=== PATIENT | female | born 1985 | race Caucasian/White ===

== ENCOUNTER 2017-08-21 19:55 | Emergency (ER) | payer BC, OTHER ==
[2017-08-21 20:01] VITALS: BP 107/73; BMI 26.6
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
[2017-08-21 21:14] LABS: BASOPHILS # (AUTO) 0.1 X10^3/uL (0.0-0.1); BASOPHILS % (AUTO) 0.8 % (0.2-1.0); EOSINOPHILS # (AUTO) 0.1 x10^3/uL (0.0-0.2); EOSINOPHILS % (AUTO) 1.4 % (0.9-2.9); HEMATOCRIT 39.2 % (36.0-47.0); HEMOGLOBIN 13.5 g/dL (12.0-16.0); LYMPHOCYTES # (AUTO) 2.4 X10^3/uL (1.3-2.9); LYMPHOCYTES % (AUTO) 33.8 % (21.0-51.0); MEAN CORPUSCULAR HEMOGLOBIN 30.7 pg (27.0-34.0); MEAN CORPUSCULAR HGB CONC 34.5 g/dL (33.0-35.0); MEAN PLATELET VOLUME 8.6 fL (7.4-11.0); MONOCYTES # (AUTO) 0.6 x10^3/uL (0.3-0.8); MONOCYTES % (AUTO) 8.8 % (0.0-13.0); NEUTROPHILS # (AUTO) 3.9 x10^3/uL (2.2-4.8); NEUTROPHILS % (AUTO) 55.2 % (42.0-75.0); PLATELET COUNT 263 X10^3/uL (150.0-450.0); RED BLOOD COUNT 4.41 X10^6/uL (3.5-5.4); RED CELL DISTRIBUTION WIDTH 12.9 % (11.6-16.5)
[2017-08-21 21:15] LABS: BILIRUBIN,URINE NEGATIVE (NEGATIVE); BLOOD/HEMOGLOBIN,URINE NEGATIVE (NEGATIVE); GLUCOSE, URINE NEGATIVE (NEGATIVE); KETONES,URINE NEGATIVE (NEGATIVE); LEUKOCYTE ESTERASE ,URINE 1+ (NEGATIVE); NITRITES,URINE NEGATIVE (NEGATIVE); PROTEIN,URINE 1+ (NEGATIVE); UROBILINOGEN,URINE 2+ (NORMAL)
[2017-08-21 21:21] LABS: APPEARANCE,URINE CLEAR (CLEAR); BACTERIA,URINE TRACE /HPF (NEGATIVE); COLOR,URINE YELLOW (YELLOW); MUCUS,URINE MANY /HPF (NEGATIVE); RBC,URINE NONE SEEN /HPF (NEGATIVE); SQUAMOUS EPITHELIAL CELL,UR FEW /HPF (NEGATIVE)
[2017-08-21 21:24] LABS: BLOOD UREA NITROGEN 11 mg/dL (7-18); CALCIUM 8.9 mg/dL (8.5-10.1); CARBON DIOXIDE 31.3 mmol/L (21-32); CHLORIDE 106 mmol/L (98-107); CREATININE 0.96 mg/dL (0.55-1.02); SODIUM 144 mmol/L (136-145); eGFR BLACK RACES > 60 (>60); eGFR NON BLACK RACES > 60 (>60)
--- NOTE | 2017-08-21 22:26 | CT ---
HISTORY: Right lower quadrant pain Study: CT abdomen and pelvis without contrast Comparison: None Technique: Multiple axial images of the abdomen and pelvis were obtained without IV contrast. Dose reduction t echniques including Automated Exposure Control (AEC) and adjustment of mA and kV were utilized. Findings: Please note evaluation is limited without use of IV contrast. The visualized lung bases are clear. The liver, spleen, pancreas, kidneys, and adrenal glands are un remarkable in their unenhanced CT appearance. The gallbladder is absent. There is a single nonobstruc ting left renal calculus. No hydronephrosis. No free intraperitoneal air. No evidence of intestinal obstruction or inflammation. The appendix is n ormal. No free fluid is identified. The soft tissues and osseous structures are unremarkable. The vascular structures are unremarkable. N o pathologically enlarged lymph nodes are identified. There is a 4.3 cm left ovarian cyst. Normal uri nary bladder. IMPRESSION: 1. No acute abnormality identified. 2. Single nonobstructing left renal calculus. 3. 4.3 cm left ovarian cyst. Reported By:
== END 2017-08-21 22:55 | disposition home or self-care (01) ==
LOC: ER 20:08
DX: N83.202 Unspecified ovarian cyst, left side (principal); N20.0 Calculus of kidney
CPT/HCPCS: 36415; 74176; 80048; 81001; 85025; 86140; 99283

== ENCOUNTER 2017-09-10 20:54 | Emergency (ER) | payer OTHER ==
[2017-09-10 21:10] VITALS: BMI 26.6
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
[2017-09-10] MEDS ORDERED: MORPHINE SULFATE INJ 4 MG IVP ONE (21:26)
[2017-09-10] MEDS ORDERED: ADACEL TDaP IM ONE ×2 (21:30→21:33)
[2017-09-10] MEDS ORDERED: ZOFRAN INJ 4 MG VIAL IVP ONE (21:31)
[2017-09-10] MEDS ORDERED: ZOFRAN INJ 4 MG VIAL ONE (21:31)
[2017-09-10] MEDS ORDERED: MORPHINE SULFATE INJ 4 MG ONE (21:32)
--- NOTE | 2017-09-10 22:39 | RAD ---
Indication: Pain Exam: Left humerus. Technique: AP and lateral views Findings: No fracture or dislocation is seen. The joint spaces are intact. The bones are well mineral ized. Impression: No abnormality seen. Reported By:
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
[2017-09-10] MEDS ORDERED: NEOSPORIN OINT ONE (22:51)
[2017-09-10 23:46] VITALS: BP 120/78
== END 2017-09-10 23:46 | disposition home or self-care (01) ==
LOC: ER 20:54
DX: S00.81XA Abrasion of other part of head, initial encounter (principal); R51 Headache; M54.2 Cervicalgia; V87.7XXA Person injured in collision between other specified motor vehicles (traffic), initial encounter
CPT/HCPCS: 70450; 72125; 73060; 90471; 96365; 96374; 96375; 99283; J2270; J2405